=== PATIENT | male | born 1955 | race Caucasian/White ===

== ENCOUNTER → 2016-09-02 | Day surgery (SDC) | payer OTHER ==
--- NOTE | 2016-08-31 16:59 | MH ---
cc: Luis DEL CASTILLO DATE OF ADMISSION: 09/02/2016 PREOPERATIVE DIAGNOSIS Torn medial meniscus right knee now for arthroscopy right knee. ADMISSION HISTORY AND PHYSICAL This is a pleasant 61-year-old male is being admitted today for arthroscopy right knee due to a torn medial meniscus. PAST MEDICAL HISTORY 1. History of diabetes 2. Hypertension. MEDICATIONS He currently takes 1. Amlodipine 2. Hydrochlorothiazide, 3. Lovastatin 4. Tricor 5. Metformin PAST SURGICAL HISTORY 1. Shoulder surgery on the right side 2. Hernia repair. REVIEW OF SYSTEMS Noncontributory. FAMILY HISTORY Noncontributory. SOCIAL HISTORY The patient quit smoking seven years ago and stopped drinking two years ago. ALLERGIES He has no known allergies. PHYSICAL EXAMINATION GENERAL: We find a 61-year-old male well-developed, well-nourished oriented x3 complaining of pain in his right knee. VITAL SIGNS: Blood pressure 122/74, pulse 76 and regular, respirations 18, temperature 98.1, pulse oximetry 98% on room air. HEENT: Eyes PERRLA, EOMI. Ears, nose, mouth clear. NECK: Supple LUNGS: Clear HEART: Regular rate. ABDOMEN: Soft. Positive bowel sounds and nontender. EXTREMITIES: Right knee tender over the medial joint surface. NEUROLOGIC: He is neurovascularly to his toes. IMPRESSION Torn medial meniscus right knee. PLAN Admission for arthroscopy right knee today. The patient given prescription for postoperative pain control in the office. He understands to use Hibiclens scrub and Bactroban preoperatively. MD NAM Hector/ /4:42 PM /4:55 PM
[~2016-09-02] VITALS: Ht 175.3 cm; Wt 87.3 kg
[~2016-09-02] MED LIST: *morphine SULFATE 8 MG/ML PERIprocedure ONLY ONE; ACETAMINOPHEN 1000 MG/100 ML VIAL IV ONE; ACETAMINOPHEN/HYDROcodone 325 MG/5 MG TAB PO PRN; AMLO10TA2 PO; BLOOD SUGAR MED; BP MED; BUPIVACAINE HCL PF 0.25% 30 ML VIAL ONE; CHLORHEXIDINE GLUCONATE 2 % 1 PACK (2 CLOTHS) TOPICAL PRN; CHLORHEXIDINE GLUCONATE 4% SOLN 120 ML BTL TOPICAL SCH; DO NOT ADM ANY ANTICOAGULANT DRUGS PRN; EXPAREL PERI-ARTICULAR INJECTION (TOTAL VOL. 60 ML) P-ARTICULR SCH; FAMOTIDINE 20 MG/2 ML VIAL ONE; FENO145T2 PO; FENO50TA PO; HYDR12.57 PO; INSULIN HUMAN REGULAR 1,000 UNITS/10 ML VIAL SQ PRN; KETOROLAC TROMETHAMINE 60 MG/2 ML (IM) VIAL IM ONE; LACTATED RINGER'S 1000 ML IV PRN; LOVA40TA PO; MAGNESIUM SULFATE 1 GM PREMIX 100 ML ONE; MEPERIDINE HCL 50 MG/ML VIAL IM PRN; METF1000 PO; METOPROLOL TARTRATE 25 MG TAB PO PRN; MEVA40TA6 PO; MIDAZOLAM HCL 2 MG/2 ML VIAL ONE; ONDANSETRON HCL 4 MG/2 ML VIAL IV PUSH ONE; ONDANSETRON ODT 4 MG TAB PO PRN; POVIDONE IODINE 5% (ANTISEPSIS KIT) 4 APPLICATIONS EACH NARE PRN; PROPOFOL 200 MG/20 ML AMP IV ONE; SILD1POW4 PO; SODIUM CHLORID 0.9% 500 ML IV PRN; VIAG50TA PO; ceFAZolin 2 GM PREMIX 50 ML IV SCH; fentaNYL CITRATE 250 MCG/5 ML AMP ONE
[2016-09-02 08:28] VITALS: BP 129/69; PULSE 64; RESP 20; TEMP 98.1; O2SAT 96
[2016-09-02 08:45] LABS: AUTOMATED NEUTROPHIL # 2.5 TH/MM3 (1.8-7.7); BASOPHIL % 0.5 % (0.0-2.0); EOSINOPHIL # 0.1 TH/MM3 (0-0.4); EOSINOPHIL % 1.3 % (0.0-4.0); HEMATOCRIT 39.9 % (39.0-51.0); HEMO FLAGS DIFF FINAL; LYMPH % 33.7 % (9.0-44.0); LYMPHOCYTE # 1.5 TH/MM3 (1.0-4.8); MEAN CELL VOLUME 85.1 FL (80.0-100.0); MEAN CORPUSCULAR HEMOGLOBIN 28.8 PG (27.0-34.0); MEAN CORPUSCULAR HGB CONC 33.9 % (32.0-36.0); MONO % 7.4 % (0.0-8.0); NEUT % 57.1 % (16.0-70.0); PLATELET COUNT 218 TH/MM3 (150-450); RED BLOOD COUNT 4.69 MIL/MM3 (4.50-5.90); RED CELL DISTRIBUTION WIDTH 13.6 % (11.6-17.2); WHITE BLOOD COUNT 4.4 TH/MM3 (4.0-11.0)
[2016-09-02 08:56] LABS: APTT (PATIENT) 28.6 SEC (24.3-30.1); PROTHROMBIN TIME - PATIENT 10.7 SEC (9.8-11.6)
[2016-09-02 08:57] LABS: ANION GAP 10 MEQ/L (5-15); AST (GOT) 10 U/L (15-37); BICARBONATE 22.2 MEQ/L (21.0-32.0); BLOOD UREA NITROGEN 8 MG/DL (7-18); CHLORIDE 108 MEQ/L (98-107); GLOMERULAR FILTRATION RATE 101 ML/MIN (>89); POTASSIUM 3.7 MEQ/L (3.5-5.1); SODIUM (NA) 140 MEQ/L (136-145)
[2016-09-02 09:01] LABS: ALKALINE PHOSPHATASE 52 U/L (45-117); ALT (GPT) 19 U/L (12-78); TOTAL BILIRUBIN ADULT 0.5 MG/DL (0.2-1.0)
[2016-09-02 09:26] LABS: BLOOD, URINE NEG (NEG); GLUCOSE,URINE NEG (NEG); KETONE, URINE NEG (NEG); MUCUS URINE FEW /lpf (OCC); NITRITE,URINE NEG (NEG); PH, URINE 5.5 (5.0-8.5); URINE COLOR YELLOW (YELLW/STRAW)
[2016-09-02 09:27] LABS: COMMENT (UR) CULT NOT INDICATED; CULTURE IF INDICATED CULT NOT INDICATED
--- NOTE | 2016-09-02 11:39 | HHI.PR ---
Immediate Post Op Note Procedure Date: Sep 02, 2016 Pre Op Diagnosis: Torn medial meniscus right knee Post Op Diagnosis: Right Knee torn medial meniscus Surgeon: Luis Rodriguez MD Fermentation Scientist(s): Nara WERNER Procedure: Right knee Arthroscopy with internal debridement Complications: none Specimen(s) removed: none Estimated blood loss: <10cc Anesthesia: General Drains: None IVF Tourniquet time (min at mmHg) none Patient to: PACU Patient Condition: Good Date/Time of Procedure: SEE SURGICAL CARE RECORD Nara Talley Sep 02, 2016 11:39
--- NOTE | 2016-09-02 12:40 | EKG ---
Date Performed: 09/02/2016 Time Performed: 07:45:49 PTAGE: 61 years EKG: Sinus rhythm INCOMPLETE RIGHT BUNDLE BRANCH BLOCK BORDERLINE ECG INTERPRETATION BASED ON A DEFAULT AGE OF 39 YEAR S NO PREVIOUS TRACING DOCTOR: Jorge Rodriguez Interpretating Date/Time 09/02/2016 12:37:38
[2016-09-02 12:57] VITALS: BP 145/73; PULSE 59; RESP 18; TEMP 97.6; O2SAT 98
--- NOTE | 2016-09-04 18:00 | MP ---
cc: Luis DEL CASTILLO M.D. DATE OF SURGERY: 09/02/2016. PREOPERATIVE DIAGNOSIS: Torn medial meniscus, right knee. POSTOPERATIVE DIAGNOSIS: 1. Torn medial meniscus, right knee. 2. Chondromalacia medial femoral condyle weightbearing surface. OPERATIVE PROCEDURE PERFORMED: Arthroscopy with excision of torn medial meniscus and ArthroCare shaving of medial femoral condylar chondromalacia. SURGEON: Luis Del Castillo MD. MAGAZINE FILLER: ALPHONSO Hamilton. ANESTHESIA: LMA DESCRIPTION OF THE PROCEDURE IN DETAIL: The patient was brought to the operating room and placed on the operating room table in the supine position. After successful induction of general anesthesia, the patient's right leg was prepped and draped in the usual manner. The knee was then placed in a knee irby and tightened. Arthroscopic examination was then performed by making a stab wound over the proximal superior and medial aspect of the patellofemoral joint for insertion of the inflow cannula and fluid, followed by stab wounds over the medial and lateral joint margins respectively for insertion of the arthroscope, shaver and probe. Arthroscopic examination was then performed which revealed a large tear of the posterior horn of the medial meniscus right knee, which was removed using the ArthroCare shaver and probe to afford a smooth surface. The undersurface of the femur over this area revealed chondromalacia which was shaved smooth using the ArthroCare System. The rest of the medial compartment was found to be intact. The anterior cruciate ligament was found to be intact. The lateral compartment was found to be intact. The patellofemoral joint was found to be intact. The wound was irrigated copiously with lactated Ringer's solution. Excess fluid was removed. 12 cc of 0.25% Marcaine plain was inserted around the knee joint. The skin was approximated with interrupted 3-0 nylon suture. Wet and then dry dressing was applied to the wound followed by Xeroform gauze, sterile dressing and thigh-high Dylan wrap. No tourniquet was utilized. The estimated blood loss was 10 cc. Sponge and suture counts were correct. ALPHONSO Hamilton, was present during the entire procedure to include patient positioning and the procedure. The medical necessity of a nurse practitioner / airline pilot/first officer was indicated in this case due to the surgical complexity of the case itself. During the surgical case, the surgical instrument mechanic was working at the back table while my surgical resident / CHILD SPECIALIST was directly assisting me. The patient tolerated the procedure well and left the operating room in satisfactory condition. J. MD NAM Fritz/ANNA MARIE /11:21 AM /5:49 PM
== END | disposition home or self-care (01) ==
LOC: HSDC 07:11
PROVIDERS: ATTEND Surgery
DX: S83.241A Other tear of medial meniscus, current injury, right knee, initial encounter (principal); M94.261 Chondromalacia, right knee; I45.10 Unspecified right bundle-branch block; I10 Essential (primary) hypertension; E11.9 Type 2 diabetes mellitus without complications; E78.5 Hyperlipidemia, unspecified; Z79.899 Other long term (current) drug therapy; Z79.84 Long term (current) use of oral hypoglycemic drugs; Z87.891 Personal history of nicotine dependence; Z98.890 Other specified postprocedural states; Z01.810 Encounter for preprocedural cardiovascular examination; Z01.812 Encounter for preprocedural laboratory examination; X58.XXXA Exposure to other specified factors, initial encounter
CPT/HCPCS: 01400; 29881; 80053; 81001; 85025; 85610; 85730; 93005; J0131; J0690; J1885; J2250; J2270; J2405; J3010; J3475; J7120